=== PATIENT | male | born 1960 | race African-American/Black ===

== ENCOUNTER 2017-03-07 20:02 | Emergency (ER) | payer OTHER ==
[~2017-03-07] VITALS: Ht 170.2 cm; Wt 70.5 kg
[~2017-03-07 20:02] MED LIST: AMLODIPINE5 MG PO; ATENOLOL25 MG PO; AUGMENTIN875TAB PO; FLEXERIL10 MG PO; LORTAB 1010 MG PO; LORTAB 5/3255 MG PO; NAPROSYN500 MG PO; NO HOME MEDICATIONS; SEROQUEL50 MG PO; TRIMOX500 MG PO
[2017-03-07 20:55] VITALS: BP 134/98
== END 2017-03-07 21:00 | disposition home or self-care (01) | DRG 605 ==
LOC: ED 20:02
PROC: 0HQDXZZ Repair Right Lower Arm Skin, External Approach (ICD-10-PCS; principal; 2017-03-07)
DX: S61.511A Laceration without foreign body of right wrist, initial encounter (principal); I10 Essential (primary) hypertension; E11.9 Type 2 diabetes mellitus without complications; J44.9 Chronic obstructive pulmonary disease, unspecified; F17.210 Nicotine dependence, cigarettes, uncomplicated; W25.XXXA Contact with sharp glass, initial encounter; Y93.89 Activity, other specified; Y92.009 Unspecified place in unspecified non-institutional (private) residence as the place of occurrence of the external cause

== ENCOUNTER 2017-03-19 09:18 | Emergency (ER) | payer OTHER ==
[~2017-03-19] VITALS: Ht 170.2 cm; Wt 70.1 kg
[2017-03-19] MEDS ORDERED: ATORVASTATIN CA20 MG PO (09:40)
[2017-03-19] MEDS ORDERED: NORVASC10 M1 PO (09:40)
[2017-03-19 09:53] VITALS: BP 150/96
== END 2017-03-19 10:00 | disposition home or self-care (01) | DRG 950 ==
LOC: ED 09:18
DX: S61.501D Unspecified open wound of right wrist, subsequent encounter (principal); I10 Essential (primary) hypertension; X58.XXXD Exposure to other specified factors, subsequent encounter; F32.9 Major depressive disorder, single episode, unspecified; E11.9 Type 2 diabetes mellitus without complications; J44.9 Chronic obstructive pulmonary disease, unspecified; F17.210 Nicotine dependence, cigarettes, uncomplicated

== ENCOUNTER 2017-11-26 18:59 | Emergency (ER) | payer OTHER ==
[~2017-11-26] VITALS: Ht 170.2 cm; Wt 66.2 kg
[~2017-11-26 18:59] MED LIST changes: +ATORVASTATIN CA20 MG PO; +NORVASC10 M1 PO
[2017-11-26 20:29] LABS: HEMATOCRIT 42.5 % (39.0-50.0); HEMOGLOBIN 14.1 g/dl (14.0-18.0); IMMATURE GRANULOCYTES 0.2 % (0.0-1.0); MEAN CELL VOLUME 96.2 fL CALC (80.0-100.0); MEAN CORPUSCULAR HGB 31.9 pG CALC (26.0-32.0); MEAN CORPUSCULAR HGB CONC 33.2 g/L CALC (32.0-36.0); NEUT# 2.94 thou/uL (1.82-7.42); RED BLOOD COUNT 4.42 mill/uL (4.70-6.10); RED CELL DISTRI WIDTH 15.1 % (11.5-15.5)
[2017-11-26 20:45] VITALS: BP 167/101
[2017-11-26 20:45] LABS: ALBUMIN 4.6 g/dL (3.2-5.0); ALKALINE PHOSPHATASE 74 u/l (38-126); ANION GAP 22 (6-22 (CALC)); BILIRUBIN, TOTAL 0.4 mg/dL (0.0-1.4); BUN 9 mg/dL (9-20); BUN/CREATININE RATIO 10 (12-20 (CALC)); CARBON DIOXIDE 23 mmol/l (22-30); CHLORIDE 105 mmol/l (95-108); CREATININE 0.9 mg/dL (0.7-1.3); GFR > 60 ML/MIN (>=60 (CALC)); GFR FOR AFR.AMER. > 60 ML/MIN (>=60 (CALC)); POTASSIUM 3.9 mmol/l (3.5-5.1); SGOT/AST 36 u/l (17-59); SGPT/ALT 35 u/l (21-72); SODIUM 146 mmol/l (137-146)
[2017-11-26 20:54] LABS: MYOGLOBIN 38 ng/mL (0 - 121)
== END 2017-11-26 20:45 | disposition left against medical advice (07) | DRG 313 ==
LOC: ED 18:59
PROVIDERS: Emergency Medicine
DX: R07.9 Chest pain, unspecified (principal); F10.120 Alcohol abuse with intoxication, uncomplicated; Z91.19 Patient's noncompliance with other medical treatment and regimen; Y90.6 Blood alcohol level of 120-199 mg/100 ml; F17.210 Nicotine dependence, cigarettes, uncomplicated; I10 Essential (primary) hypertension

== ENCOUNTER 2019-08-08 | Emergency (ER) | payer OTHER ==
[2019-08-08] MEDS ORDERED: HYZAAR1 TAB PO (11:46)
[2019-08-08] MEDS ORDERED: NORVASC10 M1 PO (11:46)
[2019-08-08] MEDS ORDERED: CARVEDILOL6.25 MG PO (11:47)
[2019-08-08 12:07] LABS: HEMATOCRIT 42.1 % (39.0-50.0); HEMOGLOBIN 14.1 g/dl (14.0-18.0); IMMATURE GRANULOCYTES 0.7 % (0.0-5.0); MEAN CORPUSCULAR HGB 32.5 pG CALC (26.0-32.0); MEAN CORPUSCULAR HGB CONC 33.5 g/L CALC (32.0-36.0); NEUT# 4.03 thou/uL (1.82-7.42); RED BLOOD COUNT 4.34 mill/uL (4.70-6.10); RED CELL DISTRI WIDTH 14.1 % (11.5-15.5)
[2019-08-08 12:29] LABS: URINE BILIRUBIN - DIPSTICK NEGATIVE (NEGATIVE); URINE BLOOD DIPSTICK NEGATIVE (NEGATIVE); URINE COLOR YELLOW; URINE GLUCOSE - DIPSTICK NEGATIVE (NEGATIVE); URINE KETONE TRACE mg/dL (NEGATIVE); URINE LEUK ESTERASE NEGATIVE (NEGATIVE); URINE NITRITE - DIPSTICK NEGATIVE (Negative); URINE PH 5.5 (4.5-8.0); URINE PROTEIN - DIPSTICK 100 mg/dL (NEG-TRACE); URINE SPECIFIC GRAVITY 1.025; URINE UROBILINOGEN - DIPSTICK 0.2 E.U./dL (0.2)
[2019-08-08 12:32] LABS: URINE MUCUS MODERATE hpf (NONE-FEW)
[2019-08-08 12:38] LABS: BARBITURATES NEGATIVE (NEGATIVE); COCAINE NEGATIVE (NEGATIVE); METHADONE NEGATIVE (NEGATIVE); OXCYCODONE NEGATIVE (NEGATIVE); TETRAHYDROCANNABIONOL NEGATIVE (NEGATIVE); TRICYLIC ANTIDEPRESSANTS NEGATIVE (NEGATIVE)
[2019-08-08 13:01] LABS: ALBUMIN 4.3 g/dL (3.2-5.0); ALKALINE PHOSPHATASE 60 u/l (38-126); BILIRUBIN, TOTAL 0.5 mg/dL (0.0-1.4); BUN 13 mg/dL (8-23); BUN/CREATININE RATIO 11 (12-20 (CALC)); CARBON DIOXIDE 23 mmol/l (22-30); CHLORIDE 96 mmol/l (95-108); CREATININE 1.2 mg/dL (0.7-1.3); GFR > 60 ML/MIN (>=60 (CALC)); GFR FOR AFR.AMER. > 60 ML/MIN (>=60 (CALC)); POTASSIUM 3.2 mmol/l (3.5-5.1); TOTAL PROTEIN 8.4 g/dL (6.3-8.2)
[2019-08-08 13:02] LABS: ANION GAP 17 (6-22 (CALC)); SGOT/AST 85 u/l (19-48); SODIUM 133 mmol/l (137-146)
[2019-08-08 13:11] LABS: MYOGLOBIN 161 ng/mL (0 - 121)
[2019-08-08] MEDS ORDERED: AMOXICILLIN500 MG PO (14:06)
== END 2019-08-08 14:35 | disposition home or self-care (01) ==
PROVIDERS: Emergency Medicine
DX: E87.6 Hypokalemia (principal); K04.7 Periapical abscess without sinus; E11.9 Type 2 diabetes mellitus without complications; I10 Essential (primary) hypertension; F17.200 Nicotine dependence, unspecified, uncomplicated

== ENCOUNTER 2022-03-10 14:21 | Emergency (ER) | payer OTHER ==
[~2022-03-10] VITALS: Ht 170.2 cm; Wt 63.6 kg
[2022-03-10] VITALS (9 sets, daily range): BP systolic 144–192; BP diastolic 94–123
[~2022-03-10 14:21] MED LIST changes: +AMOXICILLIN500 MG PO; +CARVEDILOL6.25 MG PO; +HYZAAR1 TAB PO
[2022-03-10 14:50] LABS: HEMATOCRIT 38.3 % (39.0-50.0); IMMATURE GRANULOCYTES 0.1 % (0.0-5.0); MEAN CORPUSCULAR HGB 30.7 pG CALC (26.0-32.0); MEAN CORPUSCULAR HGB CONC 33.9 g/dL CAL (32.0-36.0); NEUT# 4.09 thou/uL (1.82-7.42); RED BLOOD COUNT 4.23 mill/uL (4.70-6.10); RED CELL DISTRI WIDTH 13.9 % (11.5-15.5)
[2022-03-10 14:51] LABS: MEAN CELL VOLUME 90.5 fL CALC (80.0-100.0)
[2022-03-10 15:22] LABS: ALBUMIN 4.5 g/dL (3.2-5.0); BUN 10 mg/dL (8-23); BUN/CREATININE RATIO 11 (12-20 (CALC)); CHLORIDE 103 mmol/l (95-108); CREATININE 0.9 mg/dL (0.7-1.3); GFR FOR AFR.AMER. > 60 ML/MIN (>=60 (CALC)); GFR OTHER RACES > 60 ML/MIN (>=60 (CALC)); SGOT/AST 44 u/l (19-48); SODIUM 139 mmol/l (137-146); TOTAL PROTEIN 8.4 g/dL (6.3-8.2)
[2022-03-10 15:22] LABS: URINE BILIRUBIN - DIPSTICK NEGATIVE (NEGATIVE); URINE BLOOD DIPSTICK TRACE-INTACT (NEGATIVE); URINE COLOR YELLOW; URINE GLUCOSE - DIPSTICK NEGATIVE (NEGATIVE); URINE KETONE 15 mg/dL (NEGATIVE); URINE LEUK ESTERASE NEGATIVE (NEGATIVE); URINE PROTEIN - DIPSTICK NEGATIVE (NEG-TRACE); URINE UROBILINOGEN - DIPSTICK 0.2 E.U./dL (0.2)
[2022-03-10 15:23] LABS: ALKALINE PHOSPHATASE 135 u/l (38-126); ANION GAP 20 (6-22 (CALC)); BILIRUBIN, TOTAL 0.8 mg/dL (0.0-1.4); CARBON DIOXIDE 20 mmol/l (22-30)
[2022-03-10 15:24] LABS: PROTHROMBIN TIME 10.2 SECONDS (9.0-12.5)
[2022-03-10 15:27] LABS: URINE NITRITE - DIPSTICK NEGATIVE (Negative)
[2022-03-10] MEDS ORDERED: METOPROLOL TART50 MG PO (15:57)
== END 2022-03-10 17:15 | disposition left against medical advice (07) ==
LOC: ED 14:21
PROVIDERS: Family Medicine
DX: G45.9 Transient cerebral ischemic attack, unspecified (principal); U07.1 COVID-19; I10 Essential (primary) hypertension; E78.5 Hyperlipidemia, unspecified; E11.9 Type 2 diabetes mellitus without complications; F20.9 Schizophrenia, unspecified; F17.200 Nicotine dependence, unspecified, uncomplicated; M25.511 Pain in right shoulder; F31.9 Bipolar disorder, unspecified; Z86.73 Personal history of transient ischemic attack (TIA), and cerebral infarction without residual deficits; Z91.19 Patient's noncompliance with other medical treatment and regimen
CPT/HCPCS: Q3014; Q9967

== ENCOUNTER 2022-03-13 18:37 | Emergency (ER) | payer OTHER ==
[~2022-03-13] VITALS: Ht 170.2 cm; Wt 81.6 kg
[~2022-03-13 18:37] MED LIST changes: +METOPROLOL TART50 MG PO
[2022-03-13 18:55] VITALS: BP 144/88
[2022-03-13 19:01] VITALS: BP 123/87
[2022-03-13 19:29] LABS: HEMATOCRIT 40.8 % (39.0-50.0); HEMOGLOBIN 13.3 g/dl (14.0-18.0); IMMATURE GRANULOCYTES 0.2 % (0.0-5.0); MEAN CELL VOLUME 94.7 fL CALC (80.0-100.0); MEAN CORPUSCULAR HGB 30.9 pG CALC (26.0-32.0); MEAN CORPUSCULAR HGB CONC 32.6 g/dL CAL (32.0-36.0); NEUT# 2.32 thou/uL (1.82-7.42); RED BLOOD COUNT 4.31 mill/uL (4.70-6.10); RED CELL DISTRI WIDTH 14.6 % (11.5-15.5)
[2022-03-13 19:30] VITALS: BP 127/78
[2022-03-13 19:48] LABS: ALBUMIN 4.5 g/dL (3.2-5.0); ALKALINE PHOSPHATASE 116 u/l (38-126); ANION GAP 20 (6-22 (CALC)); BILIRUBIN, TOTAL 0.6 mg/dL (0.0-1.4); BUN 11 mg/dL (8-23); BUN/CREATININE RATIO 11 (12-20 (CALC)); CARBON DIOXIDE 22 mmol/l (22-30); CHLORIDE 103 mmol/l (95-108); ETHYL ALCOHOL 228 mg/dl (0-30); GFR FOR AFR.AMER. > 60 ML/MIN (>=60 (CALC)); GFR OTHER RACES > 60 ML/MIN (>=60 (CALC)); POTASSIUM 4.1 mmol/l (3.5-5.1); SGOT/AST 68 u/l (19-48); SODIUM 141 mmol/l (137-146); TOTAL PROTEIN 8.2 g/dL (6.3-8.2)
[2022-03-13 19:57] LABS: URINE BILIRUBIN - DIPSTICK NEGATIVE (NEGATIVE); URINE BLOOD DIPSTICK TRACE-INTACT (NEGATIVE); URINE COLOR YELLOW; URINE GLUCOSE - DIPSTICK NEGATIVE (NEGATIVE); URINE KETONE NEGATIVE (NEGATIVE); URINE LEUK ESTERASE NEGATIVE (NEGATIVE); URINE PROTEIN - DIPSTICK NEGATIVE (NEG-TRACE); URINE SPECIFIC GRAVITY <=1.005; URINE UROBILINOGEN - DIPSTICK 0.2 E.U./dL (0.2)
[2022-03-13 20:01] VITALS: BP 149/102
[2022-03-13 20:02] LABS: URINE NITRITE - DIPSTICK NEGATIVE (Negative)
[2022-03-13 22:11] VITALS: BP 95/59
[2022-03-13 23:00] VITALS: BP 107/73
[2022-03-14] VITALS: BP 117/78
[2022-03-14 01:00] VITALS: BP 107/66
[2022-03-14 02:00] VITALS: BP 125/85
[2022-03-14 03:01] VITALS: BP 108/53
[2022-03-14 03:30] VITALS: BP 108/53
== END 2022-03-14 03:30 | disposition designated cancer center or children's hospital (05) ==
LOC: ED 18:37
PROVIDERS: Family Medicine
DX: R44.1 Visual hallucinations (principal); F10.129 Alcohol abuse with intoxication, unspecified; I10 Essential (primary) hypertension; E11.9 Type 2 diabetes mellitus without complications; F31.9 Bipolar disorder, unspecified; F20.9 Schizophrenia, unspecified; Z20.822 Contact with and (suspected) exposure to COVID-19
CPT/HCPCS: S0166

== ENCOUNTER 2023-01-04 20:18 | Emergency (ER) | payer OTHER ==
[~2023-01-04] VITALS: Ht 170.2 cm; Wt 66.0 kg
[2023-01-04 20:47] LABS: BASO% 0.5 % (0-3); EOS% 1.4 % (0-8); HEMATOCRIT 43.9 % (39.0-50.0); HEMOGLOBIN 14.4 g/dl (14.0-18.0); IMMATURE GRANULOCYTES 0.2 % (0.0-5.0); LYMPH% 56.1 % (15-41); MEAN CELL VOLUME 95.2 fL CALC (80.0-100.0); MEAN CORPUSCULAR HGB 31.2 pG CALC (26.0-32.0); MEAN CORPUSCULAR HGB CONC 32.8 g/dL CAL (32.0-36.0); MONO% 7.9 % (2-13); NEUT# 1.94 thou/uL (1.82-7.42); NEUT% 33.9 % (42-76); RED BLOOD COUNT 4.61 mill/uL (4.70-6.10); RED CELL DISTRI WIDTH 14.6 % (11.5-15.5)
[2023-01-04 21:03] LABS: ALBUMIN 4.8 g/dL (3.2-5.0); ALKALINE PHOSPHATASE 63 u/l (38-126); ANION GAP 18 (6-22 (CALC)); BILIRUBIN, TOTAL 0.3 mg/dL (0.2-1.3); BUN 12 mg/dL (8-23); BUN/CREATININE RATIO 13 (12-20 (CALC)); CARBON DIOXIDE 18 mmol/l (22-30); CHLORIDE 110 mmol/l (95-108); ETHYL ALCOHOL 265 mg/dl (0-30); GFR FOR AFR.AMER. > 60 ML/MIN (>=60 (CALC)); GFR OTHER RACES > 60 ML/MIN (>=60 (CALC)); SGOT/AST 32 u/l (19-48); SODIUM 142 mmol/l (137-146); TOTAL PROTEIN 8.6 g/dL (6.3-8.2)
[2023-01-04 21:09] LABS: URINE BILIRUBIN - DIPSTICK NEGATIVE (NEGATIVE); URINE BLOOD DIPSTICK TRACE-INTACT (NEGATIVE); URINE COLOR YELLOW; URINE GLUCOSE - DIPSTICK NEGATIVE (NEGATIVE); URINE KETONE NEGATIVE (NEGATIVE); URINE LEUK ESTERASE NEGATIVE (NEGATIVE); URINE NITRITE - DIPSTICK NEGATIVE (Negative); URINE PROTEIN - DIPSTICK 30 mg/dL (NEG-TRACE); URINE SPECIFIC GRAVITY <=1.005; URINE UROBILINOGEN - DIPSTICK 0.2 E.U./dL (0.2)
[2023-01-04 21:10] LABS: URINE RBC 0-2 RBC/hpf (0-5)
[2023-01-04 21:30] VITALS: BP 188/113
[2023-01-04 21:39] VITALS: BP 179/114
[2023-01-04] MEDS ORDERED: LISINOP/HCTZ1 TA2 PO (21:43)
[2023-01-04 21:50] VITALS: BP 171/134
[2023-01-04 22:07] VITALS: BP 177/114
[2023-01-04 22:17] VITALS: BP 177/114
== END 2023-01-04 22:23 | disposition home or self-care (01) ==
LOC: ED 20:18
PROVIDERS: Family Medicine
DX: S01.81XA Laceration without foreign body of other part of head, initial encounter (principal); F10.129 Alcohol abuse with intoxication, unspecified; Y90.8 Blood alcohol level of 240 mg/100 ml or more; I10 Essential (primary) hypertension; E11.9 Type 2 diabetes mellitus without complications; F31.9 Bipolar disorder, unspecified; F17.200 Nicotine dependence, unspecified, uncomplicated; W19.XXXA Unspecified fall, initial encounter; Y92.009 Unspecified place in unspecified non-institutional (private) residence as the place of occurrence of the external cause; Z91.14 Patient's other noncompliance with medication regimen

== ENCOUNTER 2024-01-28 12:35 | Inpatient (IN) | payer MEDICARE, MEDICAID ==
[2024-01-28] VITALS (35 sets, daily range): BP systolic 126–218; BP diastolic 68–179
[~2024-01-28] VITALS: Ht 170.2 cm; Wt 65.0 kg
[~2024-01-28 12:35] MED LIST changes: +B121000 MC1 PO; +D3 HIGH POT5000 UNIT PO; +EC-NAPROXEN500 MG PO; +HYZAAR1 TA2 PO; +LIPITOR20 M1 PO; +LISINOP/HCTZ1 TA2 PO; +MEGESTROL AC
[2024-01-28] MEDS ORDERED: SODIUM CHLORIDE 0.9% 1,000 ML IV ONE (12:55)
[2024-01-28 13:14] LABS: BASO% 0.6 % (0-3); EOS% 1.2 % (0-8); HEMATOCRIT 48.6 % (39.0-50.0); HEMOGLOBIN 15.9 g/dl (14.0-18.0); LYMPH% 42.6 % (15-41); MEAN CELL VOLUME 95.7 fL CALC (80.0-100.0); MEAN CORPUSCULAR HGB 31.3 pG CALC (26.0-32.0); MEAN CORPUSCULAR HGB CONC 32.7 g/dL CAL (32.0-36.0); MONO% 12.5 % (2-13); NEUT# 2.07 thou/uL (1.82-7.42); NEUT% 43.1 % (42-76); RED BLOOD COUNT 5.08 mill/uL (4.70-6.10); RED CELL DISTRI WIDTH 15.1 % (11.5-15.5)
[2024-01-28 13:19] LABS: ALBUMIN 4.6 g/dL (3.2-5.0); ALKALINE PHOSPHATASE 83 u/l (38-126); ANION GAP 12 (6-22 (CALC)); BILIRUBIN, TOTAL 0.9 mg/dL (0.2-1.3); BUN 17 mg/dL (8-23); BUN/CREATININE RATIO 17 (12-20 (CALC)); CALCULATED LDLCHOLESTEROL 142 mg/dL (62-129 (CALC)); CARBON DIOXIDE 22 mmol/l (22-30); CHLORIDE 110 mmol/l (95-108); CHOLESTEROL HDL RATIO 3.7 (<4.4 (CALC)); ESTIMATED GFR 84 ML/MIN (>=90 (CALC)); HDL CHOLESTEROL 63 mg/dL (39.0-59.0); POTASSIUM 4.1 mmol/l (3.5-5.1); SGOT/AST 31 u/l (19-48); SODIUM 140 mmol/l (137-146); TOTAL CHOLESTEROL 230 mg/dl (0-199); TOTAL PROTEIN 8.8 g/dL (6.3-8.2); TOTAL TRIGLYCERIDES 123 mg/dl (0-149); VLDL CHOLESTROL 25 mg/dl (4-45 (CALC))
[2024-01-28 13:45] LABS: INTERNATIONAL NORMALIZED RATIO 1.1 RATIO (0.7-1.3)
[2024-01-28 13:46] LABS: PROTHROMBIN TIME 10.5 SECONDS (9.0-12.5)
[2024-01-28 14:35] LABS: URINE BILIRUBIN - DIPSTICK Negative (NEGATIVE); URINE BLOOD DIPSTICK Trace-intact (NEGATIVE); URINE GLUCOSE - DIPSTICK Negative (NEGATIVE); URINE KETONE Negative (NEGATIVE); URINE LEUK ESTERASE Negative (NEGATIVE); URINE NITRITE - DIPSTICK Negative (Negative); URINE PH 6.5 (4.5-8.0); URINE PROTEIN - DIPSTICK 30 mg/dL (NEG-TRACE); URINE SPECIFIC GRAVITY 1.015
[2024-01-28 14:51] LABS: URINE COLOR Yellow
[2024-01-28 14:53] LABS: URINE EPITHELIAL CELLS FEW EPI/hpf (0-FEW); URINE MUCUS MODERATE hpf (NONE-FEW); URINE RBC 0-2 RBC/hpf (0-5)
[2024-01-28] MEDS ORDERED: LABETALOL HCL 20 MG/ 4 ML CARTRG IV ONE (15:15)
[2024-01-28] MEDS ORDERED: ACETAMINOPHEN 325 MG/TAB PO PRN (15:25)
[2024-01-28] MEDS ORDERED: DEXTROSE 250 ML IV PRN (15:25)
[2024-01-28] MEDS ORDERED: MAGNESIUM HYDROXIDE 30 ML UDC PO PRN (15:25)
[2024-01-28] MEDS ORDERED: hydrALAZINE HCL 20 MG/ML VIAL(1 ML) IV PRN (15:35)
[2024-01-28] MEDS ORDERED: amLODIPine BESYLATE 5 MG/TAB PO SCH (16:30)
[2024-01-28] MEDS ORDERED: LOSARTAN Potassium 50 MG/TAB PO SCH (17:30)
[2024-01-28] MEDS ORDERED: ENOXAPARIN SODIUM 40 MG/0.4 ML SYR SC SCH (21:00)
[2024-01-28] MEDS ORDERED: ATORVASTATIN CALCIUM 40 MG/TAB PO SCH (21:00)
[2024-01-28] MEDS ORDERED: LABETALOL HCL 20 MG/ 4 ML CARTRG IV PRN (21:10)
[2024-01-28] MEDS ORDERED: CARVEDILOL 6.25 MG/TAB PO SCH (21:12)
[2024-01-28] MEDS ORDERED: chlordiazePOXIDE HCL 25 MG CAP PO PRN (21:15)
[2024-01-29] VITALS (29 sets, daily range): BP systolic 104–204; BP diastolic 66–127
[2024-01-29 05:23] LABS: BASO% 0.7 % (0-3); EOS% 2.7 % (0-8); HEMATOCRIT 47.7 % (39.0-50.0); HEMOGLOBIN 15.8 g/dl (14.0-18.0); LYMPH% 47.7 % (15-41); MEAN CELL VOLUME 95.4 fL CALC (80.0-100.0); MEAN CORPUSCULAR HGB 31.6 pG CALC (26.0-32.0); MEAN CORPUSCULAR HGB CONC 33.1 g/dL CAL (32.0-36.0); MONO% 9.8 % (2-13); NEUT# 1.71 thou/uL (1.82-7.42); NEUT% 39.1 % (42-76)
[2024-01-29 05:38] LABS: ALBUMIN 4.2 g/dL (3.2-5.0); BILIRUBIN, TOTAL 0.7 mg/dL (0.2-1.3); CREATININE 0.8 mg/dL (0.7-1.3); POTASSIUM 3.6 mmol/l (3.5-5.1); TOTAL PROTEIN 7.7 g/dL (6.3-8.2)
[2024-01-29] MEDS ORDERED: FOLIC ACID 1 MG/TAB PO SCH (09:00)
[2024-01-29] MEDS ORDERED: ASPIRIN EC 81 MG/TAB PO SCH (09:00)
[2024-01-29] MEDS ORDERED: amLODIPine BESYLATE 5 MG/TAB PO SCH (09:00)
[2024-01-29] MEDS ORDERED: PANTOPRAZOLE SODIUM Sesquihydr 40 MG/TAB PO SCH (09:00)
[2024-01-29] MEDS ORDERED: THIAMINE HCL 100 MG TAB PO SCH (09:00)
[2024-01-29] MEDS ORDERED: MULTIPLE VITAMIN TABLET PO SCH (09:00)
[2024-01-29] MEDS ORDERED: CLOPIDOGREL BISULFATE 75 MG/TAB TAB PO SCH (11:00)
[2024-01-29] MEDS ORDERED: NICOTINE TRANSDERMAL 21 MG/PATCH TD SCH (21:00)
[2024-01-30] VITALS (17 sets, daily range): BP systolic 118–176; BP diastolic 72–101
[2024-01-30] MEDS ORDERED: PNEUMOCOCCAL 20-VALENT CONJUGA 0.5 ML/DOSE INJ IM SCH (09:00)
[2024-01-30] MEDS ORDERED: CARVEDILOL6.25 MG PO (12:35)
[2024-01-30] MEDS ORDERED: PLAVIX75 MG PO (12:35)
[2024-01-30] MEDS ORDERED: ADLT ASA LOW81 MG PO (12:36)
[2024-01-30] MEDS ORDERED: ATORVASTATIN CA40 MG PO (12:36)
[2024-01-30] MEDS ORDERED: HYZAAR1 TA2 PO (12:36)
[2024-01-30] MEDS ORDERED: NORVASC10 M1 PO (12:36)
[2024-01-30] MEDS ORDERED: PANTOPRAZOLE SO40 M1 PO (12:36)
== END 2024-01-30 14:15 | disposition home health service (06) | DRG 65 ==
LOC: ED 12:35 → ED-I 15:09 → ED 15:29 → ICU 15:30
PROVIDERS: Nurse Practitioner; Nurse Practitioner Family; ADMIT Internal Medicine; ATTEND Internal Medicine
DX: I63.421 Cerebral infarction due to embolism of right anterior cerebral artery (principal); F10.239 Alcohol dependence with withdrawal, unspecified; G81.94 Hemiplegia, unspecified affecting left nondominant side; I63.411 Cerebral infarction due to embolism of right middle cerebral artery; R20.0 Anesthesia of skin; R29.707 NIHSS score 7; I16.0 Hypertensive urgency; T46.5X6A Underdosing of other antihypertensive drugs, initial encounter; I11.0 Hypertensive heart disease with heart failure; I50.9 Heart failure, unspecified; E11.9 Type 2 diabetes mellitus without complications; F31.9 Bipolar disorder, unspecified; F20.9 Schizophrenia, unspecified; F17.200 Nicotine dependence, unspecified, uncomplicated; Z91.128 Patient's intentional underdosing of medication regimen for other reason; Z86.73 Personal history of transient ischemic attack (TIA), and cerebral infarction without residual deficits
CPT/HCPCS: J1650; Q9967

== ENCOUNTER 2024-02-05 17:34 | Emergency (ER) | payer MEDICARE, MEDICAID ==
[~2024-02-05] VITALS: Ht 170.2 cm; Wt 84.0 kg
[2024-02-05] VITALS (11 sets, daily range): BP systolic 132–155; BP diastolic 80–92
[~2024-02-05 17:34] MED LIST changes: +ADLT ASA LOW81 MG PO; +ATORVASTATIN CA40 MG PO; +PANTOPRAZOLE SO40 M1 PO; +PLAVIX75 MG PO
[2024-02-05] MEDS ORDERED: MULTIPLE VITAMIN 10 ML,THIAMINE HCL 100 MG in SODIUM CHLORIDE 0.9% 1,000 ML IV ONE (17:45)
[2024-02-05 17:57] LABS: BASO% 0.4 % (0-3); EOS% 1.9 % (0-8); HEMATOCRIT 48.2 % (39.0-50.0); HEMOGLOBIN 15.9 g/dl (14.0-18.0); IMMATURE GRANULOCYTES 0.1 % (0.0-5.0); LYMPH% 48.5 % (15-41); MEAN CELL VOLUME 94.5 fL CALC (80.0-100.0); MEAN CORPUSCULAR HGB 31.2 pG CALC (26.0-32.0); NEUT# 2.72 thou/uL (1.82-7.42); NEUT% 40.1 % (42-76); RED BLOOD COUNT 5.1 mill/uL (4.70-6.10); RED CELL DISTRI WIDTH 14.4 % (11.5-15.5)
[2024-02-05 18:14] LABS: ALBUMIN 4.9 g/dL (3.2-5.0); ALKALINE PHOSPHATASE 95 u/l (38-126); ANION GAP 14 (6-22 (CALC)); BILIRUBIN, TOTAL 0.6 mg/dL (0.2-1.3); BUN 15 mg/dL (8-23); BUN/CREATININE RATIO 13 (12-20 (CALC)); CARBON DIOXIDE 23 mmol/l (22-30); CHLORIDE 109 mmol/l (95-108); CREATININE 1.2 mg/dL (0.7-1.3); ESTIMATED GFR 67 ML/MIN (>=90 (CALC)); ETHYL ALCOHOL 198 mg/dl (0-30); POTASSIUM 3.9 mmol/l (3.5-5.1); SGOT/AST 38 u/l (19-48); SODIUM 142 mmol/l (137-146)
[2024-02-05 18:17] LABS: TOTAL PROTEIN 9.4 g/dL (6.3-8.2)
[2024-02-05 18:45] LABS: URINE BILIRUBIN - DIPSTICK Negative (NEGATIVE); URINE BLOOD DIPSTICK Negative (NEGATIVE); URINE COLOR Yellow; URINE GLUCOSE - DIPSTICK Negative (NEGATIVE); URINE KETONE Negative (NEGATIVE); URINE LEUK ESTERASE Negative (NEGATIVE); URINE NITRITE - DIPSTICK Negative (Negative); URINE PH 5.5 (4.5-8.0); URINE PROTEIN - DIPSTICK Trace mg/dL (NEG-TRACE); URINE UROBILINOGEN - DIPSTICK 0.2 E.U./dL (0.2)
== END 2024-02-05 23:16 | disposition home or self-care (01) ==
LOC: ED 17:34
PROVIDERS: Nurse Practitioner
DX: F10.129 Alcohol abuse with intoxication, unspecified (principal); Y90.6 Blood alcohol level of 120-199 mg/100 ml; I10 Essential (primary) hypertension; E78.5 Hyperlipidemia, unspecified; I69.954 Hemiplegia and hemiparesis following unspecified cerebrovascular disease affecting left non-dominant side; Z91.81 History of falling; E11.9 Type 2 diabetes mellitus without complications; F31.9 Bipolar disorder, unspecified; F20.9 Schizophrenia, unspecified; F17.200 Nicotine dependence, unspecified, uncomplicated

== ENCOUNTER 2024-03-29 12:56 | Emergency (ER) | payer MEDICARE, MEDICAID ==
[2024-03-29] VITALS (19 sets, daily range): BP systolic 104–141; BP diastolic 63–76
[~2024-03-29] VITALS: Ht 170.2 cm; Wt 66.4 kg
[2024-03-29 13:19] LABS: BASO% 0.6 % (0-3); EOS% 0.8 % (0-8); IMMATURE GRANULOCYTES 0.2 % (0.0-5.0); LYMPH% 16.5 % (15-41); MEAN CORPUSCULAR HGB 30.7 pG CALC (26.0-32.0); MEAN CORPUSCULAR HGB CONC 32.7 g/dL CAL (32.0-36.0); MONO% 8.4 % (2-13); NEUT# 6.56 thou/uL (1.82-7.42); NEUT% 73.5 % (42-76); RED BLOOD COUNT 3.97 mill/uL (4.70-6.10); RED CELL DISTRI WIDTH 13.9 % (11.5-15.5)
[2024-03-29 13:24] LABS: HEMATOCRIT 37.3 % (39.0-50.0); HEMOGLOBIN 12.2 g/dl (14.0-18.0)
[2024-03-29] MEDS ORDERED: ASPIRIN 81 MG/TAB PO ONE (13:30)
[2024-03-29 13:34] LABS: INTERNATIONAL NORMALIZED RATIO 1.1 RATIO (0.7-1.3)
[2024-03-29 13:36] LABS: PROTHROMBIN TIME 10.6 SECONDS (9.0-12.5)
[2024-03-29 13:38] LABS: ALBUMIN 4.6 g/dL (3.2-5.0); ALKALINE PHOSPHATASE 83 u/l (38-126); ANION GAP 10 (6-22 (CALC)); BILIRUBIN, TOTAL 0.7 mg/dL (0.2-1.3); BUN 16 mg/dL (8-23); BUN/CREATININE RATIO 13 (12-20 (CALC)); CARBON DIOXIDE 26 mmol/l (22-30); CHLORIDE 108 mmol/l (95-108); CREATININE 1.2 mg/dL (0.7-1.3); ESTIMATED GFR 67 ML/MIN (>=90 (CALC)); HDL CHOLESTEROL 39 mg/dL (39.0-59.0); POTASSIUM 4.4 mmol/l (3.5-5.1); SGOT/AST 27 u/l (19-48); SODIUM 140 mmol/l (137-146); TOTAL PROTEIN 8.4 g/dL (6.3-8.2); TOTAL TRIGLYCERIDES 78 mg/dl (0-149); VLDL CHOLESTROL 16 mg/dl (4-45 (CALC))
[2024-03-29 13:44] LABS: CALCULATED LDLCHOLESTEROL 102 mg/dL (62-129 (CALC)); TOTAL CHOLESTEROL 157 mg/dl (0-199)
[2024-03-29 15:24] LABS: URINE BILIRUBIN - DIPSTICK Negative (NEGATIVE); URINE BLOOD DIPSTICK Negative (NEGATIVE); URINE GLUCOSE - DIPSTICK Negative (NEGATIVE); URINE KETONE Negative (NEGATIVE); URINE LEUK ESTERASE Negative (NEGATIVE); URINE NITRITE - DIPSTICK Negative (Negative); URINE PH 6.5 (4.5-8.0); URINE PROTEIN - DIPSTICK Negative (NEG-TRACE)
[2024-03-29 15:25] LABS: URINE COLOR Yellow
== END 2024-03-29 18:13 ==
LOC: ED 12:56
PROVIDERS: Family Medicine
DX: I63.231 Cerebral infarction due to unspecified occlusion or stenosis of right carotid arteries (principal); R47.01 Aphasia; R29.707 NIHSS score 7; I10 Essential (primary) hypertension; E11.9 Type 2 diabetes mellitus without complications; F31.9 Bipolar disorder, unspecified; F10.20 Alcohol dependence, uncomplicated; F17.200 Nicotine dependence, unspecified, uncomplicated; Z79.82 Long term (current) use of aspirin; Z79.02 Long term (current) use of antithrombotics/antiplatelets; Z86.73 Personal history of transient ischemic attack (TIA), and cerebral infarction without residual deficits
CPT/HCPCS: Q9967